=== PATIENT | female | born 1980 | race Caucasian/White ===

== ENCOUNTER → 2016-03-09 | Outpatient (CLI) | payer OTHER ==
[~2016-03-09] MED LIST: CETI10TA84 PO; IBUP600T44 PO; MULT-506 PO; OXYC-57 PO; PRENTAB26 PO
== END | disposition home or self-care (01) ==
LOC: C.LABSPEC 14:54
PROVIDERS: ATTEND Obstetrics & Gynecology
DX: Z12.4 Encounter for screening for malignant neoplasm of cervix (principal)

== ENCOUNTER → 2016-05-12 | Day surgery (SDC) | payer OTHER ==
--- NOTE | 2016-04-20 08:09 | HISTORY & PHYSICAL EXAMINATION ---
DATE OF ADMISSION: 05/12/2016 PREOPERATIVE DIAGNOSIS: Persistent intermenstrual spotting and dysfunctional bleeding. HISTORY: The patient is a 35-year-old white female, 2, para 2, who presented to me as an established patient, but the first time she had presented to me for annual exam. She notes a 2- to 3-year history of intermittent random spotting throughout her menstrual cycle. She has a period approximately every 21 days and her bleeding lasts 7-9 days, it starts with spotting, then stops, and she gets a period for 1-2 days and then has more spotting and then has random intermittent spotting throughout the cycle. This had been worked up in 2013 with an SIS that was negative and no endometrial biopsy. Given the persistence of symptoms, I asked the patient to have another saline infusion sonogram. On this test, it was indeterminate. There appeared in some views to possibly be polyps or thickening but could not be confirmed in the perpendicular view. Given the persistence of her symptoms, I have recommended D\T\C hysteroscopy. Additionally, the patient has not been biopsied. PAST OBSTETRICAL AND GYNECOLOGICAL HISTORY: As noted above. ALLERGIES: No known drug allergies. MEDICATIONS: Include Astelin, multivitamin, an inhaler as well as sumatriptan when needed. PAST MEDICAL HISTORY: Significant for asthma and migraine headaches. SOCIAL HISTORY: The patient denies tobacco, alcohol or drug use. SURGICAL HISTORY: History of section and tubal banding by laparoscopy. FAMILY HISTORY: There is family history of breast cancer in 2 maternal aunts, endometriosis in her mother as well as family history of breast cancer. PHYSICAL EXAMINATION: GENERAL: This is a well-developed, well-nourished white female in no acute distress. VITAL SIGNS: Blood pressure 112/68, weight 225.8 pounds, BMI 39. NECK: Supple without thyromegaly or lymphadenopathy. CHEST: Clear to auscultation bilaterally. CARDIOVASCULAR: Regular rate and rhythm without murmurs, gallops or rubs. BACK: Without costovertebral angle tenderness. ABDOMEN: Soft, obese, nontender, nondistended, without appreciable masses. PELVIC: There is normal external female genitalia. Normal Bartholin, urethra and [place] glands. The vagina is pink, moist, with no rugae. There is a small vaginal polyp noted on the left sidewall, but no active bleeding. Cervix is normal and multiparous, without discharge. On bimanual exam, the cervix is soft. No cervical motion tenderness. The uterus is small, midline, mobile, smooth, nontender. The adnexa without masses and tenderness. ASSESSMENT: Barbara is a 35-year-old G2, P2, with tubal ligation, who presents with a 2- to 3-year history of intermenstrual spotting, short cycles, and dysfunctional bleeding. Given that the symptoms have persisted and the SIS is indeterminate, I have recommended D\T\C hysteroscopy. The risks of the procedure were discussed with the patient including the risks of anesthesia, bleeding requiring transfusion, infection and poor wound healing, damage to surrounding structures including bowel, bladder, vessels, nerves and ureters with need for further surgery, hospitalization or intervention. The other risks of surgery including heart attack, blood clot, stroke and were discussed with the patient. Consent was reviewed and signed, questions were asked and answered, and surgery is planned for 05/12/2016.
[2016-05-04 09:13] VITALS: Ht 162.6 cm; Wt 100.0 kg
[2016-05-10 14:31] LABS: BASO % 0.5 %; BASO ABS # 0.03 K/uL (0-0.2); COMPLETE YES; EOS % 1.6 %; HEMATOCRIT 37.1 % (37-47); IG% 0.2 %; LYMPH % 29.5 %; LYMPH ABS # 1.66 K/uL (1.2-3.4); MEAN CELL VOLUME 85.7 fL (80-100); MEAN CORPUSCULAR HEMOGLOBIN 30.3 pg (25-34); MEAN CORPUSCULAR HGB CONC 35.3 g/dl (32-36); MEAN PLATELET VOLUME 10.5 fL (7.4-10.4); MONO % 6.7 %; NEUT % 61.5 %; PLATELET COUNT 230 K/uL (130-400); RED BLOOD COUNT 4.33 M/uL (4.2-5.4); WHITE BLOOD COUNT 5.63 K/uL (4.8-10.8)
[~2016-05-12] VITALS: Ht 162.6 cm; Wt 100.0 kg
[~2016-05-12] MED LIST changes: +ATROPINE SULFATE 0.1 MG/ML 5ML SYR IV PRN; +DEXAMETHASONE SOD INJ 4 MG/ML VIAL ONE; +FENTANYL CITRATE INJ 50 MCG/1 ML 2 ML VIAL IV PRN; +FENTANYL CITRATE INJ 50 MCG/1 ML 2 ML VIAL ONE; -IBUP600T44 PO; +IBUPROFEN 200 MG TAB ONE; +IBUPROFEN 600 MG TAB PO PRN; +KETOROLAC TROMETHAMINE 30 MG/ML VIAL IV. PRN; +KETOROLAC TROMETHAMINE 30 MG/ML VIAL ONE; +LACTATED RINGER'S 1000ML 1,000 ML IV SCH; +LACTATED RINGER'S 1000ML 500 ML IV ONE; +LIDOCAINE HCL 2% 2 ML VIAL (20MG/ML) ONE; +MIDAZOLAM HCL 1 MG/ML 2ML VIAL ONE; +MoRPHine SULFATE 2 MG/ML CARP IV PRN; +MoRPHine SULFATE 4 MG/ML 1 ML CARP\\VIAL IV PRN; +ONDANSETRON INJ 2 MG/ML 2 ML VIAL IV PRN; +ONDANSETRON INJ 2 MG/ML 2 ML VIAL ONE; -OXYC-57 PO; +OXYCODONE/ACETAMINOPHEN 5-325 TAB PO PRN; -PRENTAB26 PO; +PROPOFOL IV EMULSION 10 MG/ML 20 ML VIAL IV ONE; +SODIUM CHLORIDE 0.9% 1000ML 1,000 ML IV SCH
--- NOTE | 2016-05-12 07:47 | History & Physical Bridge - [place] ---
H&P Re-Evaluation Bridge Note: I have examined the patient, reviewed the History & Physical and in the interval since the performance of the History & Physical I have noted the following changes of clinical significance: No changes noted
--- NOTE | 2016-05-12 12:29 | Discharge Instructions ---
Discharge Instructions Date of Service May 12, 2016. Visit Reason for Visit: Dysfunctional Uterine Bleeding, Endometrial Mass Discharge Discharge Diagnosis / Problem: s/p D&C Discharge Goals Goal(s): Specific goals Activity Recommendations Activity Limitations: per Instructions/Follow-up section Anesthesia . Post Anesthesia Instructions: If you have had General Anesthesia or IV Sedation: * Do not drive today. * Resume driving when surgeon permits. * Do not make important decisions or sign legal documents today. * Call surgeon for: 1. Temperature elevations greater than 101 degrees F. 2. Uncontrollable pain. 3. Excessive bleeding. 4. Persistent nausea and vomiting. 5. Medication intolerance (nausea, vomiting or rash). * For nausea and vomiting use only clear liquids such as: tea, soda, bouillon until nausea subsides, then gradually increase diet as tolerated. * If you have any concerns or questions, call your surgeon's office. If physician is unavailable and it is an emergency, call 911 or go to the nearest emergency room. . Instructions / Follow-Up Instructions / Follow-Up ACTIVITY RECOMMENDATIONS: * Avoid tampons, douching, hot tubs, pools, and intercourse until bleeding has stopped. * May shower as usual. * No strenuous activity for 24-48 hours. After 24-48 hours, you may do anything you feel like doing (driving and sports are okay). SPECIAL CARE INSTRUCTIONS: Special Diet: * Mild nausea may occur in the immediate post-operative period. * Take clear liquids such as tea, cola or bouillon until all nausea has subsided; you may then resume your normal diet. Special Care: * Light bleeding and vaginal spotting can last from a few days to 3-4 weeks. Call your doctor if bleeding becomes heavier than the heaviest part of your period. * Check your temperature twice a day for one week. If it goes above 100.4 degrees Fahrenheit (38.0 Celsius), notify your doctor. * Call your doctor's office for an appointment for 6 weeks after your surgery. FOLLOW-UP VISIT: Call your doctor's office for an appointment for 6 weeks after your surgery. Diet Recommendations Recommended Home Diet: no limitations, resume previous diet Pending Studies Studies pending at discharge: no Medical Emergencies . Who to Call and When: Medical Emergencies: If at any time you feel your situation is an emergency, please call 911 immediately. . Non-Emergent Contact Non-Emergency issues call your: Planning Division Superintendent . . "Provider Documentation" section prepared by Addis Elam.
--- NOTE | 2016-05-12 12:31 | [facility] Post Operative Brief Note ---
Immediate Operative Summary Operative Date May 12, 2016. Pre-Operative Diagnosis DUB possible endometrial mass Procedure(s) Performed same Surgeon Papa Production Material Coordinator Surgeon(s) none Estimated Blood Loss 5cc Findings uterus sounded to 9cm, there was some irregularity to the lining on the posterior wall of the cervix--removed with myosure. both tubal ostia visualized. Fluids (cc crystalloids) 500cc, deficit 40cc Specimens myosure specimen curretings Drains none Anesthesia lma Complication(s) None Disposition Recovery Room / PACU
[2016-05-12 13:17] VITALS: TEMP 36.8
[2016-05-12 13:35] VITALS: BP 113/78; O2SAT 100
--- NOTE | 2016-05-12 13:37 | Anesthesia Progress Nt - [facility] ---
Anesthesia Post Op Note Date & Time May 12, 2016 at 13:37 Vital Signs Pain Intensity: 2 Vital Signs Past 12 Hours Date Time Temp Pulse Resp B/P Pulse Ox O2 Delivery O2 Flow Rate FiO2 05/12/16 13:35 78 18 113/78 100 Room Air 05/12/16 13:17 36.8 76 20 136/83 99 Room Air 05/12/16 13:10 68 15 115/69 99 Room Air 05/12/16 13:09 37.5 100 Room Air 05/12/16 13:05 71 15 117/67 99 Room Air 05/12/16 13:00 75 17 114/70 100 Room Air 05/12/16 12:55 73 11 119/67 100 Mask 7 05/12/16 12:50 73 13 117/63 100 Mask 7 05/12/16 12:47 73 15 119/72 100 Mask 7 05/12/16 12:41 77 13 121/73 100 Mask 7 05/12/16 12:37 37.3 81 16 119/74 99 Mask 7 05/12/16 11:11 37.1 89 16 107/69 99 Room Air Notes Mental Status: alert / awake / arousable, participated in evaluation Pt Amnestic to Procedure: Yes Nausea / Vomiting: adequately controlled Pain: adequately controlled Airway Patency, RR, SpO2: stable & adequate BP & HR: stable & adequate Hydration State: stable & adequate Anesthetic Complications: no major complications apparent
--- NOTE | 2016-05-12 13:46 | Medical Student: [facility] ---
Immediate Operative Summary Operative Date May 12, 2016. Pre-Operative Diagnosis dyfunctional uterine bleeding, possible endometrial mass Post-Operative Diagnosis same Procedure(s) Performed Dilation and Curretage and Hysteroscopy with myosure Surgeon Dr. Addis Elam Erection Shop Supervisor Surgeon(s) none Estimated Blood Loss 5cc Findings Uterus was sounded to 9cm; both tubal ostia visualized with hysteroscope; mild irregularity to the uterine lining along the posterior wall which was removed by myosure Fluids (cc crystalloids) 500cc Lactaged Ringers Specimens Myosure specimen; endometrial curettings Drains none Anesthesia General with Laryngeal Mask Airway Complication(s) None Disposition Recovery Room / PACU
--- NOTE | 2016-05-12 14:04 | OPERATIVE REPORT ---
DATE OF OPERATION: 05/12/2016 PREOPERATIVE DIAGNOSES: 1. Dysfunctional uterine bleeding. 2. Questionable endometrial mass. POSTOPERATIVE DIAGNOSES: Same. PROCEDURE: D\T\C hysteroscopy with MyoSure removal of endometrial mass. SURGEON: Dr. Elam. ANESTHESIA: General per laryngeal mask. ESTIMATED BLOOD LOSS: 5 mL. FLUIDS: 500 mL. HYSTEROSCOPIC DEFICIT 40 mL. INDICATIONS: The patient has had 3 years of dysfunctional uterine bleeding which mostly is consisting of spotting in between her cycles. This has gotten somewhat worse over the years. She had a workup in 2013, which was normal but no endometrial biopsy. SIS showed an irregularity of the posterior wall of the uterus and so D\T\C hysteroscopy was recommended. FINDINGS: Uterus sounded to 9 cm. There was some irregularity of the endometrium with questionable polypoid lesions in the posterior uterine wall. These were removed with MyoSure and a curettage was performed. Both tubal ostia were visualized. The endometrium otherwise appeared normal. COMPLICATIONS: None. DRAINS: None. DISPOSITION: To recovery room in stable condition. DESCRIPTION OF PROCEDURE: The patient was taken to the operating room where she was identified verbally and by bracelet. She was placed in dorsal supine position where general anesthesia was induced without difficulty. She was then placed in the dorsal lithotomy position in [facility]-cane stirrups and prepped and draped in normal sterile fashion. Timeout was held identifying correct patient, procedure and positioning. A weighted speculum was placed in the posterior vagina. The anterior lip of the cervix was grasped with a single-tooth tenaculum. Uterus sounded to 9 cm, dilated to #25 Jada dilator. The MyoSure scope was placed into the uterus with the above noted findings. The MyoSure device was placed through the scope and the biopsies of the back wall were taken until this was smooth with the rest of the contour of the cavity. A curettage was then done in 365 degrees and the procedure was terminated. All instruments removed from the vagina and hemostasis was noted to be excellent. All sponge, lap and needle counts were correct x2. The patient tolerated the procedure well and was taken to the recovery room in stable condition. I attest to the content of the Intraoperative Record and any orders documented therein. Any exceptio ns are noted below.
== END | disposition home or self-care (01) ==
LOC: X.SURG 10:59
PROVIDERS: ATTEND Obstetrics & Gynecology
DX: D25.9 Leiomyoma of uterus, unspecified (principal); N93.8 Other specified abnormal uterine and vaginal bleeding; J45.909 Unspecified asthma, uncomplicated; G43.909 Migraine, unspecified, not intractable, without status migrainosus; Z98.890 Other specified postprocedural states; Z98.51 Tubal ligation status

== ENCOUNTER → 2017-10-13 | Outpatient (CLI) | payer OTHER ==
[~2017-10-13] MED LIST changes: -ATROPINE SULFATE 0.1 MG/ML 5ML SYR IV PRN; -DEXAMETHASONE SOD INJ 4 MG/ML VIAL ONE; -FENTANYL CITRATE INJ 50 MCG/1 ML 2 ML VIAL IV PRN; -FENTANYL CITRATE INJ 50 MCG/1 ML 2 ML VIAL ONE; -IBUPROFEN 200 MG TAB ONE; -IBUPROFEN 600 MG TAB PO PRN; -KETOROLAC TROMETHAMINE 30 MG/ML VIAL IV. PRN; -KETOROLAC TROMETHAMINE 30 MG/ML VIAL ONE; -LACTATED RINGER'S 1000ML 1,000 ML IV SCH; -LACTATED RINGER'S 1000ML 500 ML IV ONE; -LIDOCAINE HCL 2% 2 ML VIAL (20MG/ML) ONE; -MIDAZOLAM HCL 1 MG/ML 2ML VIAL ONE; -MoRPHine SULFATE 2 MG/ML CARP IV PRN; -MoRPHine SULFATE 4 MG/ML 1 ML CARP\\VIAL IV PRN; -ONDANSETRON INJ 2 MG/ML 2 ML VIAL IV PRN; -ONDANSETRON INJ 2 MG/ML 2 ML VIAL ONE; -OXYCODONE/ACETAMINOPHEN 5-325 TAB PO PRN; -PROPOFOL IV EMULSION 10 MG/ML 20 ML VIAL IV ONE; -SODIUM CHLORIDE 0.9% 1000ML 1,000 ML IV SCH
[2017-10-13 13:01] LABS: HEMATOCRIT 37.1 % (37-47); HEMOGLOBIN 12.9 g/dL (12.0-16.0); MEAN CELL VOLUME 87.3 fL (80-100); MEAN CORPUSCULAR HEMOGLOBIN 30.4 pg (25-34); MEAN CORPUSCULAR HGB CONC 34.8 g/dl (32-36); MEAN PLATELET VOLUME 10.3 fL (7.4-10.4); PLATELET COUNT 280 K/uL (130-400); RED CELL DISTRIBUTION WIDTH CV 13.9 % (11.5-14.5); WHITE BLOOD COUNT 5.27 K/uL (4.8-10.8)
== END | disposition home or self-care (01) ==
LOC: C.LAB1850 11:44
PROVIDERS: ATTEND Obstetrics & Gynecology
DX: N92.0 Excessive and frequent menstruation with regular cycle (principal)